=== PATIENT | male | born 1955 | race African-American/Black ===

== ENCOUNTER 2016-09-23 07:36 | Inpatient (IN) ==
[2016-09-23 08:07] LABS: MANUAL DIFF NEEDED? NO
[2016-09-23 08:15] LABS: BASO% 0.3 % (0.0-0.8); EOS# 3.13 X1000 (0.0-0.7); EOS% 27.3 % (0.0-10.0); HEMATOCRIT 46.3 % (42.0-52.0); HEMOGLOBIN 17.3 g/dL (14.0-18.0); IMM GRAN# 0.05 X1000 (0.0-0.04); IMM GRAN% 0.4 % (0.0-0.5); LYMPH# 1.69 X1000 (1.2-3.4); LYMPH% 14.7 % (20.5-51.1); MCH 31.4 PG (27-31); MCHC 37.4 g/dL (33-37); MONO# 0.74 X1000 (0.11-0.59); MONO% 6.5 % (1.7-9.3); MPV 8.9 FL (7.4-10.4); NEUT% 50.8 % (42.2-75.2); PLT 210 X1000 (130-400); RBC 5.51 XMIL (4.7-6.1)
[2016-09-23 08:30] LABS: AGAP 15; ALBUMIN 3.8 g/dL (3.5-5.0); ALKALINE PHOSPHATASE 90 U/L (32-122); AMYLASE 25 U/L (20-200); BUN 17 mg/dL (8-22); CALCIUM 8.7 mg/dL (8.8-10.2); CHLORIDE 94 mmol/L (98-107); COSMO 269; GOT 11 U/L (10-34); GPT 11 U/L (10-44); LIPASE 20 U/L (13-60); POTASSIUM 3.3 mmol/L (3.5-5.1); SODIUM 133 mmol/L (136-145); TCO2 24 mmol/L (25-35)
--- NOTE | 2016-09-23 08:59 | Diag Imaging Result Document ---
PROCEDURE NAME: FLAT/UPRIGHT ABD/1 VIEW CHEST - 09/23/2016 FRONTAL CHEST X-RAY AND TWO VIEWS OF THE ABDOMEN: COMPARISON: 08/30/2012. FINDINGS: The chest is clear. There is a nonobstructive bowel gas pattern. No free air or abnormal calcifications. IMPRESSION: No acute disease.
[2016-09-23 10:26] LABS: BILIRUBIN URINE 1+ (NEGATIVE); BLOOD URINE 1+ (NEGATIVE); CLARITY CLEAR (CLEAR); COLOR AMBER; GLUCOSE URINE NEGATIVE (NEGATIVE); LEUKOCYTES URINE TRACE (NEGATIVE); NITRITE URINE POSITIVE (NEGATIVE); PROTEIN URINE 1+(30 mg/dL) mg/dL (NEGATIVE); URINE CULTURE PL NEEDED? YES; URINE SOURCE CLEAN CATCH; UROBILINOGEN URINE NORMAL
[2016-09-23 11:09] LABS: URINE EPITHELIAL CELLS <10 /HPF (<10); URINE RBC <10 /HPF (<10); URINE WBC <10 /HPF (<10)
--- NOTE | 2016-09-23 12:53 | Diag Imaging Result Document ---
PROCEDURE NAME: ABDOMEN/PELVIS W/CONTRAST - 09/23/2016 CT ABDOMEN AND PELVIS WITH INTRAVENOUS CONTRAST: A CT dose reduction protocol was used. COMPARISON: None. FINDINGS: There is moderate distention and wall thickening of the gallbladder. No biliary dilation. There is some characteristic focal fatty change of the liver. No visible bowel obstruction or inflammation. There is moderately severe mesenteric adenopathy diffusely. Normal appendix. The pancreas, spleen, adrenals, and kidneys are normal. Urinary bladder, prostate, and rectum are normal. Bony structures are intact. IMPRESSION: 1. Mildly distended gallbladder with some wall thickening. Recommend correlation with a gallbladder ultrasound. 2. Moderate, nonspecific mesenteric lymphadenopathy. [facility]
--- NOTE | 2016-09-23 15:00 | PROVIDER DOCUMENTATION ---
This chart was entered by Melissa Quiroz Scribe, acting as scribe for Danilo Mckenzie MD. HPI-Abdominal Pain/GI Problem - General Chief Complaint: Return/Recheck Stated Complaint: RETURN/RECHECK/ABD PAIN Time Seen by Provider: 09/23/16 08:09 Source: patient Allergies/Adverse Reactions: Patient Allergies Allergy/AdvReac Type Severity Reaction Status Date / Time No Known Allergies Allergy Verified 09/20/16 13:16 Home Medications: Home Medication List Medication Instructions Recorded Confirmed Last Taken Type Ondansetron Odt [Zofran 4 mg Odt] 4 mg PO Q8H PRN PRN #10 tablet 09/20/16 Unknown Rx - History of Present Illness-ABD Nature of Presenting Problems: 61 year old male presents to the ER with complaint of epigastric pain that started last pm. Pt also complains of incontinence of stool during the night. Abdominal Pain Onset Location: reports: epigastric Onset/Duration: reports: last night Timing: reports: still present Review of Systems - Adult - REVIEW OF SYSTEMS - ADULT Constitutional: denies: chills, fever Eyes: reports: no symptoms reported Ears, Nose, Mouth & Throat: reports: no symptoms reported Cardiovascular: reports: no symptoms reported Respiratory: reports: no symptoms reported Gastrointestinal: reports: abdominal pain, diarrhea Genitourinary: reports: no symptoms reported Musculoskeletal: reports: no symptoms reported Integumentary: reports: no symptoms reported Neurological: reports: no symptoms reported Psychiatric: reports: no symptoms reported Endocrine: reports: no symptoms reported Hematologic/Lymphatic: reports: no symptoms reported Allergic/Immunologic: reports: no symptoms reported All Other Systems: Reviewed and Negative Past History - Adult - PAST MEDICAL HISTORY-ADULT Review of Records: reports: Nursing Assessment Review, Medications Reviewed Major Childhood Illnesses: reports: denies history Cardiovascular: reports: denies history Respiratory: reports: denies history Gastrointestinal: reports: denies history Obstetrical/Gynecological: reports: denies history Genitourinary: reports: denies history Musculoskeletal: reports: denies history Neurological: reports: denies history Endocrine/Immune: reports: denies history Other Conditions: reports: denies history - PRIOR SURGERIES/PROCEDURES Surgical/Procedure History: reports: back/neck - IMMUNIZATION STATUS Childhood Immunizations: See Nurse Assessment Flu Vaccine: See Nurse Assessment - FAMILY HISTORY Family History: reviewed, not pertinent Physical Exam-General - CONSTITUTIONAL General Appearance: alert, no apparent distress - EYES Eyes: PERRL/EOMI, pink conjunctivae - HEAD, EARS, NOSE, MOUTH & THROAT HENMT: normocephalic/atraumatic, moist mucous membranes - NECK Neck: non-tender, normal inspection - RESPIRATORY Respiratory: lungs clear, normal breath sounds - CARDIOVASCULAR Cardiovascular: normal peripheral pulses, regular rate, rhythm - GASTROINTESTINAL (ABDOMEN) Abdominal Exam: soft, tenderness - SKIN Integumentary: normal color, warm/dry - NEUROLOGIC Neurologic: grossly normal, no motor/sensory deficits - PSYCHIATRIC Psych/Mental Status: normal mood/affect, normal thought content, normal thought process, oriented x 3 Progress - PLAN OF CARE/RESULTS Progress/Plan/Lab Results: Vital Signs - 8 hr 09/23/16 07:47 Temperature 97.9 F Pulse Rate 99 H Respiratory Rate 18 Blood Pressure 132/94 O2 Sat by Pulse Oximetry 98 Laboratory Results - last 24 hr 09/23/16 09/23/16 08:00 08:00 WBC 11.47 H RBC 5.51 Hgb 17.3 Hct 46.3 MCV 84.0 MCH 31.4 H MCHC 37.4 H RDW Std Deviation 13.1 Plt Count 210 MPV 8.9 Immature Gran % (Auto) 0.4 Neut % (Auto) 50.8 Lymph % (Auto) 14.7 L [place] % (Auto) 6.5 Eos % (Auto) 27.3 H Baso % (Auto) 0.3 Immature Gran # (Auto) 0.05 H Neut # (Auto) 5.82 Lymph # (Auto) 1.69 [place] # (Auto) 0.74 H Eos # (Auto) 3.13 H Baso # (Auto) 0.04 Sodium 133 L Potassium 3.3 L Chloride 94 L Carbon Dioxide 24 L Anion Gap 15 BUN 17 Creatinine 1.1 Estimated GFR/1.73 m2 > 60 BUN/Creatinine Ratio 15 Glucose 125 H Calculated Osmolality 269 Calcium 8.7 L Total Bilirubin 1.00 AST 11 ALT 11 Alkaline Phosphatase 90 Total Protein 7.0 Albumin 3.8 Globulin 3.0 Albumin/Globulin Ratio 1.0 Amylase 25 Lipase 20 Orders Category Date Time Status NPO Diet 09/23/16 07:46 Active FLAT/UPRIGHT ABD/1 VIEW CHEST [RAD] Stat Exams 09/23/16 07:46 Draft AMYLASE [CHEM] Stat Lab 09/23/16 08:00 Completed CBC WITH ELECTRONIC DIFF [HEME] Stat Lab 09/23/16 08:00 Completed COMPREHENSIVE METABOLIC PANEL [CHEM] Stat Lab 09/23/16 08:00 Completed LIPASE [CHEM] Stat Lab 09/23/16 08:[address] W/POSS RFLX CULT [URINALYSIS] Stat Lab 09/23/16 08:00 Received Result Diagrams: 09/23/16 08:00 09/23/16 08:00 - ULTRASOUND (By Radiology) 1 US Study: Abdomen Impression: Abnormal US Results: acute cholecystitis per radiologist Departure - Departure Time of Disposition Decision: 14:59 DIAGNOSIS: Cholecystitis Disposition: ADMITTED INPATIENT 09 Certified Medical Emergency: Emergent Condition: Stable Referrals and Follow-Ups: None,PCP [Primary Care Provider] - This chart was documented by the indicated scribe, (Melissa Quiroz, Scribe) and accurately reflects the services I performed and decisions made by me, Danilo Mckenzie MD, as attested by the provider's signature.
--- NOTE | 2016-09-23 15:00 | Diag Imaging Result Document ---
PROCEDURE NAME: US GB < RUQ (LIMITED) - 09/23/2016 RIGHT UPPER QUADRANT ULTRASOUND: COMPARISON: CT earlier 09/23/2016. FINDINGS: The gallbladder is distended and filled with significant sludge. There is gallbladder wall thickening measuring up to 5 mm. No free fluid. The common bile duct measures 3 mm. The liver and right kidney are normal. The pancreas is obscured. Aorta, IVC, and main portal vein are patent. IMPRESSION: Probable acute cholecystitis.
--- NOTE | 2016-09-23 15:27 | CONSULTATION ---
DATE OF CONSULTATION: 09/23/2016 HISTORY OF PRESENT ILLNESS: This 61-year-old male, who has had a colicky right upper quadrant epigastric pain with nausea for really the past week. He came to the ER earlier this week, was discharged but came back again with persistence symptoms. CT scan was obtained that showed a dilated gallbladder but was otherwise indeterminate. Ultrasound shows some sludge and evidence of acute cholecystitis. Denies any jaundice. No bleeding. No weight loss. Normal bowel movements. Never had a colonoscopy. PAST MEDICAL HISTORY: Negative for cardiac disease. Denies any other real medical problems. PAST SURGICAL HISTORY: He has had abscess drainage in the past of his neck but has no abdominal operation. SOCIAL HISTORY: Drinks alcohol heavily at times but not every day. A nonsmoker. No IV drugs. Has some family here with him. Does not work. REVIEW OF SYSTEMS: Ten point negative except for what is mentioned in HPI. Does have a family history of cancer but unsure what this. PHYSICAL EXAMINATION: Vital Signs: Temperature is 97.9, pulse 99, blood pressure 130/94, oxygen saturation 98% on room air. General: He is alert, in no acute distress. HEENT: No scleral icterus. Cardiovascular: Normal rate, regular rhythm. Pulmonary: No increased work of breathing. Abdomen: Soft. Some mild epigastric tenderness to palpation. He has a reducible umbilical hernia but otherwise no peritonitis. Integument: Is warm and dry. There is no lower extremity edema. I have reviewed his labs. White count mildly elevated at 11.4, hematocrit 4,6 platelets are 210,000. Creatinine is 1.1. Sodium is 133, potassium 3.3, bilirubin is normal at 1. AST and ALT are normal at 11. Alkaline phosphatase is 90. Amylase is 25, lipase 20. Urinalysis is positive for nitrates and 1+ blood and trace white blood cells. CT scan shows a dilated gallbladder and ultrasound confirms findings consistent with acute cholecystitis. ASSESSMENT/PLAN: 61-year-old male with acute cholecystitis. LFTs are normal. White count is mildly elevated. Exam is benign. Risks, benefits and alternatives including bleeding, infection, damage to other structure including the common bile duct, and bile leakage and likelihood that will leave a drain. We also discussed laparoscopic and possibility of open conversion at the time of cholecystectomy. Will admit him tonight with IV Zosyn both for urinary tract infection and cholecystitis and will post him for laparoscopic cholecystectomy in the morning with cholangiogram. He did admit to the hospitalist service at [facility]. Okay for clear liquids but make him NPO at midnight tonight. cc: Diana Maravilla MD
--- NOTE | 2016-09-23 15:37 | HISTORY AND PHYSICAL ---
CHIEF COMPLAINT: Right upper quadrant discomfort. HISTORY PRESENT ILLNESS: Patient is a 61-year-old male who presented to the emergency department actually yesterday with epigastric pain, some nausea, noted to have some incontinence of stool. He was seen, treated and apparently discharged home. He came back today as his symptoms had worsened and he was not feeling any better. Upon arrival today he had a CT scan that demonstrated mildly distended gallbladder with some gallbladder wall thickening and nonspecific mesenteric lymphadenopathy. Ultrasound which also has been obtained demonstrates probable acute cholecystitis. Therefore surgery was consulted. Dr. Maravilla has seen the patient in consultation and feels as though he needs to be admitted to have a cholecystectomy done. MEDICATIONS: None. ALLERGIES: None. SOCIAL HISTORY: Patient lives at home. He is . He has children that live around. He does not smoke or drink. FAMILY HISTORY: Noncontributory. REVIEW OF SYSTEMS: The patient notes that he is normally in a good state of health. He does not smoke or drink. Denies any chest pain, palpitations. Denies any fevers, chills. Denies any pain or discomfort in his abdomen or right upper quadrant area until the past 2 or 3 days. Notes it has continued to worsen. He has had decreased oral intake. Has had diarrhea last night. Denies any blood in stool, blood in his emesis. Denies any dysuria, frequency, urgency. Denies any skin rashes, weight loss, weight gain. PHYSICAL EXAMINATION: VITAL SIGNS: Reviewed. Temperature 97.9 degrees, pulse 99, respiratory 18, BP 132/94, saturations 98% room air. GENERAL: Patient is well developed, well nourished. He is currently in no real respiratory distress. He is awake, alert, oriented. Pleasant to talk with. Speech is regular. Memory is intact. HEENT: Normocephalic, atraumatic. ELIE. NECK: Supple. CV: Regular rate. CHEST: Relatively clear. ABDOMEN: Soft. EXTREMITIES: Moves all extremities. NEURO: No focal changes. DIAGNOSTIC DATA: WBCs 11.4, hemoglobin and hematocrit 17 and 46. Sodium 133, potassium 3.3, creatinine 1.1, glucose 125. Labs as noted. Ultrasound demonstrated acute cholecystitis per the radiologist. ASSESSMENT: 1. Acute cholecystitis. 2. Leukocytosis. 3. Mild hyponatremia. 4. Mild hypokalemia. 5. Mild hyperglycemia. PLAN: Will admit patient to the hospital. Will transfer him to [facility] as Dr. Maravilla plans on doing a cholecystectomy in the a.m. Will follow his potassium and sodium, will give him IV fluids. Will place him on Zosyn overnight, recheck his labs in the a.m. and will follow. cc: Ruel Torres MD
[2016-09-23] MEDS ORDERED: ZOSYN 3.375 GM/NS 3.375 GM/50 ML IVPB IV ONE (15:46)
[2016-09-23] MEDS ORDERED: NS 1,000 ML ONE (16:34)
[2016-09-23] MEDS ORDERED: NS 1,000 ML IV ONE (16:51)
[2016-09-23] MEDS ORDERED: NORCO-7.5 PO PRN (17:14)
[2016-09-23] MEDS ORDERED: SODIUM CHLORIDE 0.9% INJ SCH (17:14)
[2016-09-23] MEDS ORDERED: ZOFRAN IV PRN (17:14)
[2016-09-23] MEDS ORDERED: NS 1,000 ML IV SCH (17:14)
[2016-09-23] MEDS ORDERED: TYLENOL PO PRN (17:14)
[2016-09-23] MEDS: PROTONIX IV SCH (18:18)
[2016-09-23] MEDS: ZOSYN 3.375 GM/NS 3.375 GM/50 ML IVPB IV SCH (23:06)
[2016-09-24] MEDS: ZOSYN 3.375 GM/NS 3.375 GM/50 ML IVPB IV SCH ×2 (05:22→11:00)
[2016-09-24 06:30] LABS: HEMATOCRIT 43.6 % (42.0-52.0); HEMOGLOBIN 16.3 g/dL (14.0-18.0); MCH 32.5 PG (27-31); MCHC 37.4 g/dL (33-37); MPV 9.3 FL (7.4-10.4); RBC 5.01 XMIL (4.7-6.1)
[2016-09-24 06:36] LABS: INR 1.31
[2016-09-24 07:08] LABS: AGAP 16; ALBUMIN 3.3 g/dL (3.5-5.0); ALKALINE PHOSPHATASE 85 U/L (32-122); BUN 20 mg/dL (8-22); CALCIUM 8.5 mg/dL (8.8-10.2); CHLORIDE 97 mmol/L (98-107); COSMO 284; GOT 11 U/L (10-34); GPT 10 U/L (10-44); POTASSIUM 4.4 mmol/L (3.5-5.1); SODIUM 141 mmol/L (136-145); TCO2 28 mmol/L (25-35); TOTAL BILIRUBIN 1.02 mg/dL (0.20-1.00); TOTAL PROTEIN 6.6 g/dL (6.3-8.3)
[2016-09-24] MEDS ORDERED: LR 1,000 ML ONE (08:30)
[2016-09-24] MEDS ORDERED: MARCAINE 0.25% PF/EPI 1:200,000 ONE (08:30)
[2016-09-24] MEDS ORDERED: SODIUM CHLORIDE 0.9% ONE (08:30)
[2016-09-24] MEDS ORDERED: FENTANYL ONE (11:11)
[2016-09-24] MEDS ORDERED: DIPRIVAN 1% ONE (11:11)
[2016-09-24] MEDS ORDERED: VERSED ONE (11:11)
--- NOTE | 2016-09-24 11:25 | Diag Imaging Result Document ---
PROCEDURE NAME: OPERATIVE CHOLANGIOGRAM - 09/24/2016 INTRAOPERATIVE CHOLANGIOGRAM: COMPARISON: None. FINDINGS: The exam was performed by the patient's surgeon. Two images were submitted. Contrast was infused into the cystic duct. This outlines normal hepatic collecting ducts and a normal common bile duct. There is good passage of contrast into the duodenum. IMPRESSION: No complication.
--- NOTE | 2016-09-24 15:53 | PROGRESS NOTE ---
DATE: 09/24/2016 SUBJECTIVE: Feels better this morning. Less pain. No more nausea. OBJECTIVE: Vital signs: No fevers. No tachycardia. Blood pressures have been normal. General: He is alert. There is no scleral icterus. Cardiovascular: Normal rate, regular rhythm. Abdomen: Soft, nontender, nondistended with a partially reducible umbilical hernia. LABORATORY: I reviewed his laboratory. White count is stable at 12. LFTs with mild elevated bilirubin of 1.02, but otherwise, transaminase and alkaline phosphatase are normal. ASSESSMENT AND PLAN: A 61-year-old male with cholecystitis, umbilical hernia. Risks, benefits, alternatives, including bleeding, infection, bile leak, damage to other structures, including common bile duct injury were discussed. He consented to laparoscopic cholecystectomy with umbilical hernia repair. We will plan to go to the operating room today. We will do a cholangiogram as well given his mildly elevated LFTs, although I suspect this is secondary to cholecystitis. Appreciate the hospitalist's help in care of this patient. He has never really seen a medical doctor prior. cc: Diana Maravilla MD MTDD
--- NOTE | 2016-09-24 16:32 | PROGRESS NOTE ---
DATE: 09/24/2016 SUBJECTIVE: Today Mr. Calvert referred to be doing fine. He just came from laparoscopic cholecystectomy with Dr. Maravilla and he denies any pain. OBJECTIVE: Vital signs: Blood pressure is 140/92, pulse of 86, respirations 18, temperature early this morning was 97.5. General: Mr. Calvert 61-year-old male. He was in bed. Was not in any distress. HEENT: Mucosa is pink and moist. Anicteric. Acyanotic. Neck: Supple. Chest: Good air entry bilateral. No crepitations. No rhonchi. Cardiovascular: Regular rate and rhythm. No murmurs, no rubs. No gallops. Abdomen: Soft, mildly distended but nontender. There is a surgical wound on the abdominal wall which is covered with sterile gauze. There is also a JOCELYN drain on the right upper quadrant. GROCERY SPECIALIST: Patient is alert and oriented x4. Extremities: No pedal edema. LABORATORY DATA: WBC is 12.82, hemoglobin is 16.3, platelet count 200,000. Chemistries reviewed. Completely normal. CURRENT MEDICATIONS: Include. 1. Tylenol. 2. Zofran. 3. Protonix. ASSESSMENT: 1. Acute cholecystitis status post laparoscopic cholecystectomy. 2. Dehydration improved. 3. Abnormal TSH. We are going to repeat this with free T4 tomorrow morning to get us a better picture of the whole thyroid function. cc: Baljeet Romero MD
--- NOTE | 2016-09-24 17:23 | OPERATIVE NOTE ---
PROCEDURE DATE: 09/24/2016 PREOPERATIVE DIAGNOSES: 1. Acute cholecystitis. 2. Umbilical hernia. POSTOPERATIVE DIAGNOSES: 1. Acute cholecystitis. 2. Umbilical hernia. PROCEDURE PERFORMED: 1. Laparoscopic cholecystectomy with intraoperative cholangiogram. 2. Umbilical hernia repair. COMPLICATION: None. ESTIMATED BLOOD LOSS: 10 mL. SPECIMENS: 1. Umbilical hernia contents. 2. Gallbladder. ANESTHESIA: General. DRAINS: Dejuan drain left in the gallbladder fossa. OPERATIVE INDICATION: A 61-year-old male with about a week's worth of epigastric abdominal pain and nausea. CT scan and ultrasound suggested acute cholecystitis. Liver function tests showed mild elevation in alkaline phosphatase. There was a partially incarcerated umbilical hernia. OPERATIVE FINDINGS: 1. Interpretation intraoperative cholangiogram, there is rapid flow of contrast through a prominent but not significantly dilated common bile duct. There is some physiologic narrowing at the head of the pancreas, but there is rapid flow of contrast in the duodenum. No obvious intraluminal defect. There was a moderate length cystic duct with rapid flow contrast in the common hepatic and bilateral second and third degree biliary radicals. The pancreatic ducts were not visualized. 2. There was a partially incarcerated fat containing umbilical hernia. OPERATIVE NOTE: Risks, benefits, and alternatives were discussed with the patient and he consented with the procedure. He was seen in the preoperative area and surgery being performed was confirmed. He was taken to the operating room, placed supine position. General anesthesia was induced without complication. Scheduled antibiotics were confirmed. Abdomen is prepped with chlorhexidine solution and draped in the usual fashion. Time-out was performed between nursing, surgical, and anesthesia staff. All agreed. Periumbilical block was performed with local anesthetic. The umbilical skin was everted and incision made along the middle of the umbilicus, dissecting out the hernia contents. We did excise these and gained access through the hernia sac into the abdomen. I placed a 12 mm Marco trocar. Inspection assured that we did not and damage any underlying structures during reduction of the hernia. Insufflated the abdomen to 15 mmHg and he tolerated this well. We placed 3 trocars, one epigastric, one in midclavicular line, one off the costal margin all after infiltration of local anesthetic. We grasped the gallbladder. Was quite dilated, distended, and inflamed. We used a decompression needle and decompressed the gallbladder, suctioned out the bile. Then this facilitated retraction. We placed an orogastric to decompress the stomach. Starting laterally and progressing medially, we stripped down the peritoneal attachments over the infundibulocystic junction exposing this triangle and the liver visualized through this triangle. We dissected out the cystic artery. It was quite prominent and doubly clipped and divided this. This further exposed the critical view with liver visualized. No other tubular structures, and a normal appearing cystic duct. We placed a clip on the gallbladder side and made a ductotomy, performed cholangiogram with above findings. We then triply clipped the duct and divided this. There is some spillage of bile both from the decompression site and from a clip the slipped off the gallbladder. We were able to occlude this, suction out the bile. There was no spillage of stones. We then removed the gallbladder from the gallbladder fossa. Copiously irrigated the abdomen with 2 L of fluid until clear. Placed a Dejuan drain in the gallbladder fossa and secured this with 2-0 nylon suture. The gallbladder was placed in EndoCatch bag prior to this and brought the Dejuan drain out through the lateral port site. We then removed the remaining trocars under direct visualization, deflated the abdomen, and brought the gallbladder out through the umbilical hernia defect. We then freed up the fascia around this, excising more of the hernia contents and then using interrupted 0 buried PDS sutures we closed the umbilical hernia defect along midline. It was large, greater than 2 cm in largest dimension. There is good closure of the hernia defect here without any unnecessary tension , but mesh was contraindicated given the contaminated nature of the case. Both the dissection of the hernia sac and reduction and repair required significantly more work than in the normal entry into the abdomen laparoscopically. After all of this we irrigated the superficial wound, tacked down the umbilical stalk with 3-0 Vicryl suture and closed all the remaining incision with interrupted 4-0 Monocryl sutures. Dermabond was applied to the port sites. We placed a gauze Tegaderm pressure dressing at the umbilical incision. Placed the Dejuan drain to suction. At the conclusion, all sponge, instrument, and needle counts were correct x2. He tolerated the procedure well. Transferred to PACU in good condition. I spoke with the family. cc: MD NATHEN Pineda
[2016-09-24] MEDS: PROTONIX IV SCH (17:39)
[2016-09-25 06:46] LABS: FREE T4 1.95 ng/dL (0.93-1.70)
[2016-09-25 08:01] VITALS: BP 129/85
[2016-09-25] MEDS ORDERED: NEOSTIGMINE ONE (09:10)
[2016-09-25] MEDS ORDERED: ZOFRAN ONE (09:10)
[2016-09-25] MEDS ORDERED: NEO-SYNEPHRINE ONE (09:10)
[2016-09-25] MEDS ORDERED: ROBINUL ONE (09:10)
[2016-09-25] MEDS ORDERED: LR 2,000 ML ONE (09:11)
[2016-09-25] MEDS ORDERED: ZEMURON ONE (09:11)
[2016-09-25] MEDS ORDERED: DECADRON ONE (09:11)
[2016-09-25] MEDS ORDERED: XYLOCAINE-MPF 2% ONE (09:11)
[2016-09-25] MEDS ORDERED: QUELICIN (DOSE) ONE (09:11)
--- NOTE | 2016-09-25 10:09 | PROGRESS NOTE ---
DATE: 09/25/2016 SUBJECTIVE: Today Mr. Calvert refers to be doing fine. Denies any complaint. He has already been evaluated by surgery and according to him there is a plan to get him discharged per surgery. OBJECTIVE: Vital signs: Blood pressure is 129/85, pulse of 93, respirations 18 , temperature 99 degrees. General: Mr. Calvert is a 61-year-old male. He is in bed. Did not seem to be in any distress. HEENT: Mucosa is pink and moist. Anicteric. Acyanotic. Abdomen: Soft, distended, but nontender. JOCELYN drain in the right upper quadrant is still there. Extremities: No pedal edema. HEAD TELLER: Patient is alert and oriented x4. There is no focal neurological deficit. LABORATORY DATA: TSH is now normal at 3.76 and free T4 is 1.95. ASSESSMENT AND PLAN: 1. Acute cholecystitis status post laparoscopic cholecystectomy. 2. Dehydration, improved. 3. Abnormal thyroid function tests. Repeat given conflicting results. I think this is probably due to acute illness endocrinopathy. Patient has been advised to repeat the TSH and free T4 in 4 weeks when he is out of the critical illness window and follow up with his PCP. If it is abnormal then he will continue to go with an mortgage loan interviewer. In general, I think Mr. Calvert is doing fine. If it is okay with surgery we are going to discharge him today. cc: Baljeet Romero MD MTDD
--- NOTE | 2016-09-26 06:50 | PROGRESS NOTE ---
DATE: 09/25/2016 SUBJECTIVE: Feels well. No real pain. No nausea. He tolerated diet last night. OBJECTIVE: Vital Signs: No fevers. No tachycardia. Blood pressure is normal. Oxygen saturation 93% on room air. General: He is alert, in no acute distress. HEENT: No scleral icterus. Abdomen: Soft. Incision is healing well, with no cellulitis and intact drains serosanguineous. ASSESSMENT/PLAN: A 61-year-old male, status post laparoscopic cholecystectomy. He is doing well. Tolerating a diet. Pain controlled. Feeling safe for him to be discharge home. He can see me back or Sunday of this week for drain removal. I discussed this. Had my card, my contact information. We will call to set up appointment here. I have discussed signs and symptoms of infection, bile leak, and they understand this and will call if any symptoms arise. Otherwise, I will see them into this week to remove his drain. cc: Diana Maravilla MD
--- NOTE | 2016-10-06 20:00 | DISCHARGE SUMMARY ---
ADMISSION DATE: 09/23/2016 DISCHARGE DATE: 09/25/2016 DISPOSITION: Home. FOLLOWUP: Followup with Dr. Maravilla. IMAGING STUDIES OF SIGNIFICANCE: CT scan of the abdomen and pelvis was done which showed mildly distended gallbladder with some wall thickening concerning for acute cholecystitis. INVASIVE PROCEDURES DONE: Laparoscopic cholecystectomy with intraoperative cholangiogram and also an umbilical hernia repair was done by Dr. Maravilla on 09/24/2016. ADMISSION DIAGNOSES: 1. Acute cholecystitis. 2. Leukocytosis. 3. Hyponatremia. DIAGNOSES AT TIME OF DISCHARGE: 1. Acute cholecystitis status post laparoscopic cholecystectomy. 2. Clinical dehydration improved. 3. Abnormal thyroid function test. PRESENTING COMPLAINT: Right upper quadrant discomfort. HISTORY OF PRESENTING COMPLAINT: Mr. Calvert is a 61-year-old, male who presented to the emergency department in [place] [facility] because of right upper quadrant pain. This was investigated and CT scan showed distended gallbladder. Ultrasound was obtained which showed probable acute cholecystitis. The patient was transferred from [place] [facility] to [facility] for further medical care. HOSPITAL COURSE: The patient did pretty well. He initially was hydrated and put on antibiotics. He was seen by Surgery and recommendations for cholecystectomy were given. Subsequently patient consented to the procedure. This was successfully done by Dr. Maravilla on 09/24/2016. Postoperatively patient did well. He was able to eat and move around. He was therefore cleared from Surgery's standpoint to be able to be discharged. The patient did have a slightly elevated TSH and free T4. However a repeat on the TSH was normalized. I think this is probably thyroid gland dysfunction during acute illness. Patient has been advised to follow up with his primary care doctor and repeat the thyroid function test when he is at his baseline. At the time of discharge the patient's vitals were reviewed and were unremarkable. Physical examination was also unremarkable. As I said, he had been given instruction to follow up with Dr. Maravilla. TIME SPENT FOR DISCHARGE: 36 minutes. cc: Baljeet Romero MD
== END 2016-09-25 10:21 | disposition home or self-care (01) ==
LOC: P.ED 07:36 → 4N 15:45 → SUATTDRO 15:45
PROVIDERS: ATTEND Internal Medicine